=== PATIENT | male | born 1960 | race Asian ===

== ENCOUNTER → 2021-03-23 09:48 | Outpatient (BNVA) | payer OTHER, SELFPAY | PROVIDERS: Visit Provider Physician Assistant Medical | DX: Z04.1 Encounter for examination and observation following transport accident (principal) | CPT/HCPCS: 99202 ==

== ENCOUNTER 2023-10-29 09:04 | Emergency (ER) | payer OTHER, SELFPAY ==
[2023-10-29 09:17] VITALS: BP 120/70; BP 125/66; PULSE 83; PULSE 84; RESP 18; TEMP 37.5; O2SAT 95; O2SAT 97; BMI 25.3
[2023-10-29 09:21] VITALS: O2SAT 95
--- NOTE | 2023-10-29 10:19 | ED_ITS ---
HPI - URI/Sore Throat General Chief Complaint: Upper Respiratory Symptoms Stated Complaint: WEAKNESS AT WORK PER EMS Time Seen by Provider: 10/29/23 09:09 Source: patient Mode of arrival: EMS Limitations: no limitations History of Present Illness HPI Narrative: 63 yo male with PMH of HLD, HTN, [place] states he just had routine labs at [facility] yesterday he states his has the flu and he has runny nose and just not feeling well. he went to work this AM was sitting down and closed his eyes. He denies CP/SOB and feeling dizzy. He had water and coffee before work. He feels fine now his EMS BS was 171. He denies n/v/d CP/SOB. He does not want labs done. He does want a flu swab done. He did not get his flu vaccine this year. MD elicited complaint: rhinorrhea and other (flu symptoms) Onset (ago): day(s) (yesterday ) Consistency: constant Severity: mild Description of mucous: clear Able to tolerate fluids by mouth: Yes Exacerbating factors: nothing Relieving factors: nothing Context: sick contacts ( with flu) Associated symptoms: rhinorrhea and cough Treatments prior to arrival: none Related Data Previous Rx's Medication Instructions Recorded oseltamivir 75 mg capsule (Tamiflu) 75 mg PO BID 5 days #10 caps 10/29/23 Allergies Allergy/AdvReac Type Severity Reaction Status Date / Time No Known Allergies Allergy Verified 10/29/23 09:27 Review of Systems Review of Systems: Constitutional : pos Fever, No Chills, pos Fatigue ENT/Mouth : No sore throat, pos Rhinorrhea Eyes: No Eye Pain, No Swelling, No Redness Cardiovascular : No Chest Pain, No SOB, No Dyspnea on Exertion Respiratory : pos Cough, No Sputum Gastrointestinal : No Nausea, No Vomiting, No Diarrhea, No abdominal Pain Genitourinary : No Dysuria, No Urinary Frequency, No Hematuria, Musculoskeletal : No joint pain, No Myalgias, No Joint Swelling Skin : No Skin Lesions, No rash Neuro : No Weakness, No Numbness, No Dizziness, positive Headache Psych : No Anxiety/Panic, No Depression All other systems reviewed and are negative [facility] Past Medical History Attestation statement: The following information was validated with the patient. Source: old records reviewed Medical History Myocardial infarction Hyperlipidemia HTN (hypertension) Social History Social History (Updated 10/29/23 @ 10:34 by Graciela Ochoa DO) Patient Tobacco Use Status: Never used Tobacco Smoked in Last 30 Days: No Use of substances other than those prescribed or required for medical reasons: No Advance Directives: No Physical Exam Vital Signs: Vital Signs: Last Vital Signs Temp 99.5 F 10/29/23 09:17 Pulse 83 10/29/23 09:17 Resp 18 10/29/23 09:17 BP 125/66 10/29/23 09:17 Pulse Ox 95 10/29/23 09:21 O2 Del Method Room Air 10/29/23 09:21 BMI result Body Mass Index 25.3 Appearance: Alert. Oriented X3. No acute distress. Eyes: Pupils equal, round and reactive to light. ENT: Pharynx normal. Neck: Normal inspection. Neck supple. CVS: Normal heart rate and rhythm. Pulses normal. Respiratory: No respiratory distress. Breath sounds normal. Abdomen: Soft and nontender. Skin: Skin warm and dry. Normal skin color. Normal skin turgor. Extremities: No lower extremity edema. No calf ttp Neuro: Oriented X 3. No motor deficit. No sensory deficit. Medical Decision Making Medical Decision Making [facility] Narrative: 63 yo male with PMH of HLD, HTN, [place] here with c/o flu like illness but denies CP/SOB headaches, n/v/d and notes that he just had labs at [facility] yesterday routine. He feels fine he thinks he has the flu. He just wants a flu test. He doesn't want labs or anything else. He denies dizziness when standing. Differential Diagnosis Differential Diagnoses: The differential diagnosis associated with the presentation includes viral syndrome Admission/Observation Consideration of admission/observation: Escalation of care including admission/observation considered VS stable has no hypoxia he wants to go home, no hx of renal dysfunction will start on tamiflu Lab Data [facility] Lab Attestation statement: I reviewed the patient's lab results. Labs: Lab Results 10/29/23 Range/Units 10:48 COVID-19 (ANDREA) Negative (Negative) COVID-19 Clin Com See Note Influenza Type A (MARA) Positive A (Negative) Influenza Type B (MARA) Negative (Negative) Influenza A & B Note See Note Independent Historian Clinical information obtained from an independent historian. History obtained from or confirmed by: EMS External Record Review External record reviewed: Outpatient record and Prior outpatient labs Prescription Management I considered prescription management with: Antiviral Discharge Plan Discharge Clinical Impression: Influenza Patient Disposition: Home, Self-Care Instructions: Influenza (ED) Additional Instructions: return for worsening symptoms concerns, fevers, difficulty breathing or any other concerns. you are contagious wear a mask and protect others. Prescriptions: New oseltamivir [Tamiflu] 75 mg capsule 75 mg PO BID 5 Days Qty: 10 0RF Stand Alone Forms: Work/School Release
[2023-10-29 11:11] LABS: COVID-19 Test Negative (Negative); IDNOW Serial# 152EDE1D
[2023-10-29 11:14] LABS: IDNOW Serial# 08D9AD1C; Influenza A Positive (Negative); Influenza B2 Negative (Negative)
== END 2023-10-29 11:38 | disposition home or self-care (01) ==
PROVIDERS: Emergency Provider Emergency Medicine
DX: J10.1 Influenza due to other identified influenza virus with other respiratory manifestations (principal); I10 Essential (primary) hypertension; E78.5 Hyperlipidemia, unspecified; Z11.52 Encounter for screening for COVID-19
CPT/HCPCS: 87502; 87635; 99283; 99284

== ENCOUNTER 2025-01-07 08:00 | Emergency (ER) | payer OTHER, SELFPAY ==
[2025-01-07 08:03] VITALS: BP 165/83; PULSE 69; RESP 18; TEMP 36.3; O2SAT 98; BMI 34.8
[2025-01-07 10:08] VITALS: BP 164/85; PULSE 63; RESP 16; O2SAT 97
[2025-01-07] MEDS: Fluorescein Sodium STRIP 2 STRIP EYE-BOTH (10:25)
[2025-01-07] MEDS: Tetracaine HCl/PF 0.5% Oph Sol 4 ML DROPS 1 DROP EYE-BOTH (10:25)
--- NOTE | 2025-01-07 10:29 | ED_ITS ---
HPI - Eye Problem General Chief complaint: Eye Problems Stated complaint: eye inj at work Time Seen by Provider: 01/07/25 09:52 Source: patient, RN notes reviewed and old records reviewed Mode of arrival: ambulatory History of Present Illness ED Provider: Emerald Cotton PA-C HPI Narrative: 64-year-old male with a past medical history HTN, HLD, [place], presenting to the ED complaining of bilateral eye irritation x few days, and pus/crusty drainage x this AM. 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 Admits to using eye wash station immediately after incident. States water was not hot/boiling, no known chemicals in water. Admits to wearing reading glasses, denies wearing contacts, was not wearing any eye protective wear at time of incident. Denies blurry vision, double vision, visual loss, pain, nausea/vomiting. Related Data Previous Rx's ?Medication ?Instructions ?Recorded oseltamivir 75 mg capsule (Tamiflu) 75 mg PO BID 5 days #10 caps 10/29/23 erythromycin 5 mg/gram (0.5 %) eye 1 appl ophthalmic (eye) QID 5 days 01/07/25 ointment #3.5 grams Allergies Allergy/AdvReac Type Severity Reaction Status Date / Time No Known Allergies Allergy Verified 01/07/25 08:08 Review of Systems Review of Systems: Yes all other systems are reviewed and are negative Constitutional: Constitutional: Reports as per [facility] Past Medical History Attestation statement: The following information was validated with the patient. Source: old records reviewed Medical History Myocardial infarction Hyperlipidemia HTN (hypertension) Social History Social History Patient Tobacco Use Status: Never used Tobacco Advance Directives: No Advance Directives Information Provided: No Physical Exam Vital Signs: Vital Signs: Last Vital Signs Temp 97.3 F 01/07/25 08:03 Pulse 63 01/07/25 10:08 Resp 16 01/07/25 10:08 BP 164/85 H 01/07/25 10:08 Pulse Ox 97 01/07/25 10:08 O2 Del Method Room Air 01/07/25 10:08 BMI result Body Mass Index 34.8 Const: General: cooperative, healthy appearing and no acute distress Orientation/consciousness: patient oriented x3 Limitations: no limitations HEENT: Head: Yes normal to inspection and Yes atraumatic Ears: hearing grossly normal bilaterally General nose exam: Normal external nose present Face and sinus: Yes normal facial exam Eyes: Other: Visual acuity 20/25 bilaterally (uncorrected) 20/30 on the right 20/50 on the left Fluorescein use without uptake Eye pH 7 bilaterally IOP WNL bilaterally General: appearance normal, both eyes and all related structures Visual Bobby: normal visual bobby by confrontation Alignment and Position: alignment normal Periorbital: periorbital findings normal Eyelids: Yes eyelids normal Conjunctivae: conjunctival abnormal bilateral conjunctival injection diffuse Sclerae: sclerae normal Corneas: corneas normal and fluorescein used Pupils: Equal, round and reactive pupils present EOM: EOMs intact bilaterally and no movement deficit Direct Ophthalmoscopy: normal light reflex and no photophobia Neck: Neck: Yes normal visual inspection and Yes no meningeal signs Resp: Effort & Inspection: normal respiratory effort and no respiratory dist ress Cardio: Rate: regular rate Skin: Rashes: no rashes Wounds: no wounds Neuro: General: patient oriented x3, tone normal and no meningeal signs Cranial nerves: Yes CN's II-XII intact bilaterally and Yes Equal, round and reactive pupils present Gait exam (Neuro): Normal gait present Extrem: General: Yes normal to inspection Medications Administered Discontinued Medications Generic Name Dose Route Start Last Admin Trade Name Freq PRN Reason Stop Dose Admin Fluorescein Sodium 2 strip 01/07/25 10:04 01/07/25 10:25 Fluorescein Sodium Strip EYE-BOTH 01/07/25 10:05 2 strip ONCE ONE Administration Tetracaine HCl 1 drop 01/07/25 10:01/07/25 10:25 Tetracaine Hcl/Pf 0.5% Oph Silvia 4 Ml Drops EYE-BOTH 01/07/25 10:05 1 drop ONCE ONE Administration Medical Decision Making Medical Decision Making [facility] Narrative: 64-year-old male with a past medical history HTN, HLD, [place], presenting to the ED complaining of bilateral eye irritation x few days, and pus/crusty drainage x this AM. On exam vital signs stable, NAD, nontoxic appearing, physical exam as noted above with bilateral conjunctival injection. EOMs intact without pain or entrapment. No fluorescein uptake. IOP and visual acuity WNL. Eye pH 7 bilaterally. Concern for conjunctivitis vs ?, goal exposure. Low suspicion for burn. No evidence of corneal abrasion/ulceration or foreign body. Unlikely glaucoma or iritis. No evidence of globe rupture Patient has follow-up with Ophthalmology on Friday Plan: Eye exam Please refer to course for remaining clinical decision making, interpretation of labs/imaging results, and discussions with consultants and/or family members. Differential Diagnosis Differential Diagnoses: The differential diagnosis associated with the presentation includes As above External Record Review External record reviewed: Inpatient record, Office record, Outpatient record, Prior outpatient labs, Prior outpatient radiology, Primary care record and Outside ED record Tests considered The following testing was considered but not selected: As above Prescription Management I considered prescription management with: Pain Medication and Antibiotic Chronic Conditions Patient?s care impacted by: Other Social Determinants Patient?s care significantly limited by Social Determinants of Health including: Other Social Determinant of Health Discharge Plan Discharge Clinical Impression: Bacterial conjunctivitis Patient Disposition: Home, Self-Care Instructions: Conjunctivitis (ED) Additional Instructions: You have bacterial conjunctivitis Erythromycin eye ointment as an antibiotic ointment, please apply to both eyes as prescribed Follow-up with Ophthalmology, see activity therapy specialist on Friday as scheduled If her symptoms persist or worsen you develop blurry vision, double vision or visual loss return to the ED immediately Prescriptions: New erythromycin 5 mg/gram (0.5 %) ointment 1 appl ophthalmic (eye) QID 5 Days Qty: 3.5 0RF No Action oseltamivir [Tamiflu] 75 mg capsule 75 mg PO BID 5 Days Qty: 10 0RF Referrals: Saad Miller [Physician] - 3 days Print Language: Wallisian
[2025-01-07 10:36] VITALS: BP 164/85; PULSE 63; RESP 16; TEMP 36.3; O2SAT 97
== END 2025-01-07 10:37 | disposition home or self-care (01) ==
PROVIDERS: Emergency Provider Emergency Medicine Emergency Medical Services
DX: H10.33 Unspecified acute conjunctivitis, bilateral (principal)
CPT/HCPCS: 99283